=== PATIENT | male | born 1940 | race Caucasian/White ===

== ENCOUNTER → 2019-05-24 | Outpatient (CLI) | payer MEDICARE ==
--- NOTE | 2019-05-31 14:52 | Polysomnography ---
DATE OF STUDY: REFERRING PHYSICIAN: Patient of Dr. Castaneda and Dr. Wolf The patient weighs 275 pounds, 5 feet 10 inches. Body mass index 39.5. Neck size 19. The patient is an 78-year-old. He was studied using standard EEG lead. Montage in addition to electrooculogram, submentalis EMG, anterior tibialis EMG, nasal and oral thermistors, ribcage plethysmography, pulse oximetry, EKG monitoring study was abnormal. The patient experienced 8 obstructive events, averaging 16 seconds, 47 central apneas, 167 hypopneas. Sleep efficiency was reduced to 62%, which may minimize the severity of the patient's illness. Total sleep time was 277 minutes. The patient's respiratory disturbance index was 20.7, consistent with moderately severe obstructive sleep apnea. There was moderate O2 desaturation to 85%. IMPRESSION: Moderately severe obstructive sleep apnea. Certainly, the patient should be warned not to drive when left untreated. Examination of the nasal and oropharynx should be considered as well as a thyroid function. Therapeutic options in addition to weight loss would include uvulopalatopharyngoplasty with jaw advancement and nasal CPAP. MD BELEN Allred/MODL /[id number]
--- NOTE | 2019-06-05 05:04 | Pulmonary Function Test ---
DATE OF STUDY: REFERRING PHYSICIAN: Patient of Dr. Castaneda and Dr. Wolf. DICTATION ENDS HERE MD BELEN Allred/RAMSES /[id number]
== END ==
LOC: SLEEP 20:31
PROVIDERS: ATTEND Internal Medicine
DX: G47.33 Obstructive sleep apnea (adult) (pediatric) (principal)
CPT/HCPCS: 95810

== ENCOUNTER → 2019-08-09 | Outpatient (CLI) | payer MEDICARE | LOC: SLEEP 20:01 | PROVIDERS: ATTEND Internal Medicine | DX: G47.33 Obstructive sleep apnea (adult) (pediatric) (principal) | CPT/HCPCS: 95811 ==